=== PATIENT | female | born 1990 | race Two or more races ===

== ENCOUNTER 2024-08-20 15:03 | Emergency (ER) | payer OTHER ==
[2024-08-20 15:07] VITALS: BP 122/85; PULSE 83; RESP 18; TEMP 98; BMI 38.7
[2024-08-20 17:41] LABS: EPI CELLS >36 /uL (0-25.1); HYALINE CASTS 1 /uL (0-3.1); URINE APPEARANCE CLOUDY; URINE BACTERIA 1801 /uL (0-1359); URINE BILIRUBIN NEGATIVE (NEGATIVE); URINE COLOR YELLOW; URINE GLUCOSE (UA) NEGATIVE (NEGATIVE); URINE KETONE TRACE (NEGATIVE); URINE LEUK ESTERASE 1+ (NEGATIVE); URINE NITRITE NEGATIVE (NEGATIVE); URINE PROTEIN TRACE (NEGATIVE); URINE RBC 16 /uL (0-23.9); URINE WBC 8 /uL (0-25.8)
[2024-08-20 18:06] LABS: ABSOLUTE IMMATURE GRANULOCYTES 0.03 x10^3/uL (0.0-0.031); BASOPHILS # 0.06 x10^3/uL (0.01-0.08); EOSINOPHIL % 3.3 % (0.7-5.8); EOSINOPHILS # 0.26 x10^3/uL (0.04-0.36); HEMATOCRIT 39.1 % (34.1-44.9); HEMOGLOBIN 13.3 g/dL (11.2-15.7); MEAN CELL VOLUME 86.7 fl (79.4-94.8); MEAN PLT VOLUME 10.2 fl (9.4-12.3); MONOCYTE % 7.6 % (4.7-12.5); PLATELET COUNT 231 x10^3/uL (182-369); RDW 13.6 % (12.1-16.8)
[2024-08-20 18:10] LABS: EPI CELLS >36 /uL (0-25.1); HYALINE CASTS 1 /uL (0-3.1); PH,URINE 5.5 (5.0-8.0); URINE APPEARANCE CLEAR; URINE BACTERIA 397 /uL (0-1359); URINE BILIRUBIN NEGATIVE (NEGATIVE); URINE COLOR YELLOW; URINE GLUCOSE (UA) NEGATIVE (NEGATIVE); URINE KETONE TRACE (NEGATIVE); URINE LEUK ESTERASE TRACE (NEGATIVE); URINE NITRITE NEGATIVE (NEGATIVE); URINE PROTEIN NEGATIVE (NEGATIVE); URINE RBC 11 /uL (0-23.9); URINE WBC 17 /uL (0-25.8)
[2024-08-20 18:33] LABS: POTASSIUM 3.8 mmol/L (3.5-5.1)
[2024-08-20 18:35] LABS: ALBUMIN 3.4 g/dl (3.4-5.0); CALCIUM 9.6 mg/dL (8.5-10.1)
[2024-08-20 18:36] LABS: BLOOD UREA NITROGEN 8.4 mg/dL (7-18)
[2024-08-20 18:38] LABS: CREATININE 0.5 mg/dL (0.55-1.3)
[2024-08-20 18:40] LABS: BILIRUBIN,TOTAL 0.3 mg/dL (0.2-1); TOT PROT 6.8 g/dl (6.4-8.2)
[2024-08-20] MEDS ORDERED: AZITHROMYCIN 500 MG TABLET ONE (19:03)
[2024-08-20] MEDS: AZITHROMYCIN 500 MG TABLET PO ONE (19:15)
[2024-08-22 20:07] LABS: HCV DIAGNOSTIC IN-HOUSE W/RFLX NON-REACTIVE (NONREACTIVE)
[2024-08-22 20:35] LABS: HIV INTERPRETATION NEGATIVE (NEGATIVE)
== END 2024-08-20 19:31 | disposition home or self-care (01) ==
LOC: JER 15:03
DX: O20.0 Threatened abortion (principal); O23.41 Unspecified infection of urinary tract in pregnancy, first trimester; O23.511 Infections of cervix in pregnancy, first trimester; Z3A.11 11 weeks gestation of pregnancy
CPT/HCPCS: 36415; 76817-TC; 80053; 81003; 84702; 85025; 86803; 86850; 86900; 86901; 87070; 87077; 87086; 87205; 87389; 87491; 87591; 87661; 99285-25